=== PATIENT | female | born 1945 | race Hispanic/Latino ===

== ENCOUNTER → 2019-03-05 | Outpatient (CLI) | payer MEDICARE, OTHER ==
[~2019-03-05] VITALS: Ht 162.6 cm; Wt 59.0 kg
[~2019-03-05] MED LIST: DIAZ5TAB PO; LISI1TAB9 PO; LOVA20TA3 PO; REGADENOSON 0.4 MG/5 ML PF SYG IVP SCH; ZOLP10TA6 PO
== END | disposition home or self-care (01) ==
LOC: SHCH 07:59
PROVIDERS: ATTEND Internal Medicine Cardiovascular Disease
DX: R07.89 Other chest pain (principal); R00.2 Palpitations
CPT/HCPCS: 78452; 93017; 96374; A9500 ×2; J2785

== ENCOUNTER → 2019-03-08 | Outpatient (CLI) | payer MEDICARE, OTHER ==
[~2019-03-08] MED LIST changes: -REGADENOSON 0.4 MG/5 ML PF SYG IVP SCH
== END | disposition home or self-care (01) ==
LOC: SHCH 08:49
PROVIDERS: ATTEND Internal Medicine Cardiovascular Disease
DX: R00.2 Palpitations (principal)
CPT/HCPCS: 93306

== ENCOUNTER 2019-07-16 10:04 | Observation (INO) | payer MEDICARE, OTHER ==
[2019-07-11 12:25] VITALS: BP 176/69
[2019-07-11 12:40] LABS: BASOPHILS % (AUTO) 0.9 % (0.0-5.0); EOSINOPHILS % (AUTO) 1.4 % (0.0-8.0); HEMATOCRIT 42.3 % (36-48); LYMPHOCYTES % (AUTO) 30.8 % (21.0-51.0); MEAN CORPUSCULAR HEMOGLOBIN 33.7 pg (27.0-33.0); MEAN CORPUSCULAR HGB CONC 34.9 g/dL (32.0-36.0); MEAN CORPUSCULAR VOLUME 96.6 fL (79-99); MONOCYTES % (AUTO) 9.4 % (3.0-13.0); NEUTROPHILS % (AUTO) 57.5 % (40.0-77.0); NUCLEATED RED BLOOD CELLS 0.1 % (0.0-0.19); PLATELET COUNT (AUTO) 279 K/uL (130-400); RED BLOOD CELL COUNT(AUTO) 4.38 MIL/uL (4.00-5.50); WHITE BLOOD COUNT (AUTO) 6.1 K/uL (4.8-10.8)
[2019-07-11 12:52] LABS: CREATININE 0.6 mg/dL (0.5-1.5)
[2019-07-11 12:54] LABS: POTASSIUM 2.9 mmol/L (3.5-5.1)
[2019-07-11 13:05] LABS: INR 1.06 (0.85-1.15); PARTIAL THROMBOPLASTIN TIME 27.2 SEC (26.3-35.5); PROTHROMBIN TIME 11.1 SEC (9.6-11.6)
--- NOTE | 2019-07-11 13:06 | NUR ---
CRITICAL POTASSIUM REPORTED TO THERESE MCADAMS. PER FLASH REPEAT BMP DOS AND HE WILL CALL OFFICE WITH ORDERS FOR PT.
[2019-07-16] VITALS (10 sets, daily range): BP systolic 122–185; BP diastolic 71–98
[~2019-07-16] VITALS: Ht 162.6 cm; Wt 59.2 kg
[~2019-07-16 10:04] MED LIST changes: -LISI1TAB9 PO; +LISI2.5T2 PO; -LOVA20TA3 PO; +METO25TA6 PO; +SIMV-43 PO; +SODIUM CHLORIDE 0.9% 500ML 500 ML IV SCH
[2019-07-16] MEDS ORDERED: SODIUM CHLORIDE 0.9% 1000ML 1,000 ML IV SCH (11:15)
[2019-07-16 11:22] LABS: CREATININE 0.8 mg/dL (0.5-1.5); POTASSIUM 3.6 mmol/L (3.5-5.1)
[2019-07-16] MEDS ORDERED: POTA-79 PO (11:50)
[2019-07-16] MEDS ORDERED: MEPERIDINE-PF 25 MG/ML SYG ONE ×3 (13:35→14:25)
[2019-07-16] MEDS ORDERED: MIDAZOLAM HCL 1 MG/ML 2ML VIAL ONE ×3 (13:35→14:25)
[2019-07-16] MEDS ORDERED: BUPIVACAINE/PF 0.25% 30ML VIAL IJ ONE (13:35)
[2019-07-16] MEDS ORDERED: VANCOMYCIN 1GM+NS 250ML 500 ML IV ONE (13:36)
[2019-07-16] MEDS ORDERED: LIDOCAINE HCL 1% MDV 50ML VIAL ONE (13:36)
[2019-07-16] MEDS ORDERED: IOHEXOL-350 50ML VIAL IV ONE (14:21)
[2019-07-16] MEDS ORDERED: OCTYL 2-CYANOACRYLATE 1 EACH TP ONE ×2 (14:45→15:07)
[2019-07-16] MEDS ORDERED: ZOLPIDEM TARTRATE 5 MG TAB PO PRN (15:30)
--- NOTE | 2019-07-16 16:00 | NUR ---
STATUS PT RECEIVED FROM LOCKER ROOM CLERK VIA BED, S/P PPM PLACEMENT. LT UPPER CHEST PRESSURE DSG, DRY & INTACT. NO BLEEDING, NO HEMATOMA NOTED. SLING TO LT ARM. PPM ARM PRECAUTIONS REVIEWED & REINFORCED. PT INFORMED TO MAINTAIN BEDREST UNTIL AM. DENIES INCISIONAL PAIN. A/O X 3. NO SOB. NO DISTRESS NOTED. DENIES CHEST PAIN OR DISCOMFORT. TELE: PACED 70s. DENIES N/V AND/OR DIARRHEA. ORIENTED TO RM. INSTRUCTED TO CALL FOR ASSISTANCE. CALL [facility] W/IN REACH.
[2019-07-16] MEDS ORDERED: METOPROLOL TARTRATE 25 MG TAB PO SCH (17:00)
[2019-07-16] MEDS ORDERED: SIMVASTATIN 20 MG TABLET PO SCH (21:00)
[2019-07-16] MEDS: POTASSIUM CHLORIDE 20 MEQ ERTAB PO SCH (21:59)
[2019-07-16] MEDS: METOPROLOL TARTRATE 25 MG TAB PO SCH (22:01)
[2019-07-16] MEDS: ACETAMINOPHEN 325 MG TAB PO PRN (22:01)
[2019-07-17 03:39] LABS: CREATININE 0.7 mg/dL (0.5-1.5); POTASSIUM 4.1 mmol/L (3.5-5.1)
[2019-07-17 04:06] VITALS: BP 142/77
[2019-07-17] MEDS: ACETAMINOPHEN 325 MG TAB PO PRN (05:53)
[2019-07-17] MEDS ORDERED: VANCOMYCIN 1GM+NS 250ML 250 ML IV ONE (06:00)
[2019-07-17 07:00] VITALS: BP 138/87
[2019-07-17] MEDS: METOPROLOL TARTRATE 25 MG TAB PO SCH (08:56)
[2019-07-17] MEDS: POTASSIUM CHLORIDE 20 MEQ ERTAB PO SCH (08:56)
[2019-07-17] MEDS ORDERED: NON-FORMULARY MEDICATION 1 EACH (Potassium Chloride 20 MEQ) PO SCH (09:00)
[2019-07-17 11:00] VITALS: BP 140/82
[2019-07-17 16:00] VITALS: BP 149/79
[2019-07-17] MEDS ORDERED: METO-391 PO (16:13)
[2019-07-17] MEDS ORDERED: DOXY100T2 PO (16:15)
--- NOTE | 2019-07-17 18:30 | NUR ---
DISCHARGE Discharge instructions discussed with pt and family friend at bedside. Pt made aware of changes in home medications. Marked on pt's home medication bottles with a marker (marked with an "X") to indicate medications she is not to continue. These two medications were also written on home medication form indicating that Lisinopril and metoprolol tartrate are not to be continued. Written prescription placed inside pt's discharge folder - pt/family friend aware. Reenforced instructions regarding activity restrictions secondary to insertion of PPM. Instructed pt to leave tegaderm/gauze drsg in place, untouched, until she is seen in follow up by . Discussed potential s/s of infection, complications that need to be assessed by either PCP or . Instructed pt to seek emergency medical attention if necessary for acute pain or swelling to procedural site. Pt voiced understanding. Pt left with arm sling in place to LUE. Discharged to home with family friend providing transportation. No complaints voiced by pt at time of discharge.
== END 2019-07-17 18:46 | disposition home or self-care (01) ==
LOC: DAH 10:04 → 2AH 10:05
PROVIDERS: ADMIT Internal Medicine Nephrology; ATTEND Internal Medicine Nephrology
DX: I49.5 Sick sinus syndrome (principal); I21.9 Acute myocardial infarction, unspecified; R42 Dizziness and giddiness; R00.2 Palpitations; R55 Syncope and collapse; I10 Essential (primary) hypertension; E78.00 Pure hypercholesterolemia, unspecified; F41.9 Anxiety disorder, unspecified; Z90.710 Acquired absence of both cervix and uterus; Z86.73 Personal history of transient ischemic attack (TIA), and cerebral infarction without residual deficits
CPT/HCPCS: 33208; 36415 ×3; 71046; 80048 ×3; 85025; 85610; 85730; 93005; 96365; 96366; A4215; A4216; A4221; A4222; A4223 ×2; A4606; C1785; C1894; C1898 ×2; G0378 ×28; J2175 ×3; J2250 ×3; J3370 ×2; J3490 ×2; 96360; 96361; 99156; 99157; Q9967

== ENCOUNTER 2022-04-09 09:35 | Emergency (ER) | payer MEDICARE, OTHER ==
[~2022-04-09] VITALS: Ht 167.6 cm; Wt 49.9 kg
[~2022-04-09 09:35] MED LIST changes: +DOXY100T2 PO; -LISI2.5T2 PO; +METO-391 PO; -METO25TA6 PO; +POTA-79 PO; -SODIUM CHLORIDE 0.9% 500ML 500 ML IV SCH
[2022-04-09 10:11] LABS: APPEARANCE,URINE CLEAR (CLEAR); BILIRUBIN,URINE NEGATIVE (NEGATIVE); COLOR,URINE YELLOW (YELLOW); GLUCOSE, URINE (UA) NEGATIVE (NEGATIVE); KETONES,URINE NEGATIVE (NEGATIVE); LEUKOCYTE ESTERASE ,URINE NEGATIVE (NEGATIVE); NITRATE,URINE NEGATIVE (NEGATIVE); OCCULT BLOOD,URINE NEGATIVE (NEGATIVE); PROTEIN,URINE NEGATIVE (NEGATIVE); UROBILINOGEN,URINE 0.2 mg/dL (0.2-1.0)
[2022-04-09 10:11] LABS: BASOPHILS % (AUTO) 0.9 % (0.0-5.0); EOSINOPHILS % (AUTO) 2.2 % (0.0-8.0); HEMATOCRIT 41.5 % (36-48); LYMPHOCYTES % (AUTO) 25.8 % (21.0-51.0); MEAN CORPUSCULAR HEMOGLOBIN 29.2 pg (27.0-33.0); MEAN CORPUSCULAR VOLUME 88.5 fL (79-99); MONOCYTES % (AUTO) 9.5 % (3.0-13.0); NEUTROPHILS % (AUTO) 61.1 % (40.0-77.0); PLATELET COUNT (AUTO) 320 K/uL (130-400); RED BLOOD CELL COUNT(AUTO) 4.69 MIL/uL (4.00-5.50); RED CELL DISTRIBUTION WIDTH 14.3 % (11.0-15.5); WHITE BLOOD COUNT (AUTO) 5.6 K/uL (4.8-10.8)
[2022-04-09 10:19] LABS: AMPHET/METH SCREEN,URINE NEGATIVE (NEGATIVE); BARBITURATE SCREEN, URINE NEGATIVE (NEGATIVE); BENZODIAZEPINES SCREEN,URINE NEGATIVE (NEGATIVE); CANNABINOID SCREEN,URINE NEGATIVE (NEGATIVE); COCAINE SCREEN,URINE NEGATIVE (NEGATIVE); OPIATE SCREEN,URINE NEGATIVE (NEGATIVE); PHENCYCLIDINE SCREEN,URINE NEGATIVE (NEGATIVE)
[2022-04-09 10:23] LABS: CARBON DIOXIDE 29 mmol/L (21-32); CHLORIDE 108 mmol/L (101-111); CREATININE 0.6 mg/dL (0.5-1.5); GLOMERULAR FILTR. RATE CALC 104 mL/min (>60); GLUCOSE,RANDOM 119 mg/dL (70-105); POTASSIUM 3.6 mmol/L (3.5-5.1); SODIUM SERUM 146 mmol/L (136-145); UREA NITROGEN, BLOOD 10 mg/dL (7-18)
[2022-04-09 10:28] LABS: ALANINE AMINOTRANSFERASE 27 U/L (12-78); ALBUMIN 4.1 g/dL (3.5-5.0); ALCOHOL, BLOOD < 3 mg/dL (0-10); ASPARTATE AMINOTRANSFERASE 21 U/L (10-37); BILIRUBIN,TOTAL 0.6 mg/dL (0.2-1.0); TOTAL PROTEIN, SERUM 7.3 g/dL (6.0-8.3)
[2022-04-09 10:43] LABS: ACETAMINOPHEN < 1 mcg/mL (10-30); SALICYLATE < 2.8 mg/dL (2.8-20.0)
[2022-04-09 13:23] VITALS: BP 144/74
== END 2022-04-09 15:34 | disposition home or self-care (01) ==
LOC: EDH 09:35
DX: F03.90 Unspecified dementia, unspecified severity, without behavioral disturbance, psychotic disturbance, mood disturbance, and anxiety (principal); Z20.822 Contact with and (suspected) exposure to COVID-19; F41.9 Anxiety disorder, unspecified; I10 Essential (primary) hypertension; Z88.0 Allergy status to penicillin; Z79.899 Other long term (current) drug therapy
CPT/HCPCS: 99284; 87635; 80053; 80305; 85025; 36415; 93005; 81003; G0481; C9803